=== PATIENT | female | born 1995 | race Caucasian/White ===

== ENCOUNTER 2018-12-02 16:01 | Emergency (ER) | payer BC, OTHER ==
[2018-12-02] MEDS ORDERED: diphenhydrAMINE 50 MG/ML VIAL ONE (17:39)
[2018-12-02] MEDS ORDERED: Metoclopramide HCl 10 MG/2 ML VIAL ONE (17:39)
--- NOTE | 2018-12-02 18:18 | CT ---
CT BRAIN 12/03/18 HISTORY: Headache. Noncontrast enhanced CT images of the brain is obtained from the base of the skull through the vertex . The brain and bone windows obtained. CT images of the brain demonstrate the brain to be unremarkable. No evidence of intracranial masses, hemorrhages, strokes or contusions seen. Ventricles are of normal size. IMPRESSION: Normal CT brain. POS: [facility]
== END 2018-12-02 19:02 | disposition home or self-care (01) ==
LOC: ERS 16:01
DX: G43.809 Other migraine, not intractable, without status migrainosus (principal); R20.2 Paresthesia of skin; F41.9 Anxiety disorder, unspecified
CPT/HCPCS: 70450; 96374; 96375; J1200; J2765